=== PATIENT | female | born 1990 | race African-American/Black ===

== ENCOUNTER 2017-06-01 07:24 | Emergency (ER) | payer OTHER ==
--- NOTE | 2017-06-01 07:30 | PDOC ---
History of Present Illness - General Chief Complaint: Ear Problem Stated Complaint: RT EAR WAX Time Seen by Provider: 06/01/17 07:30 History Source: Patient Exam Limitations: No Limitations - History of Present Illness Initial Comments: 27 yo F no pertinent PMH presents with R cerumen impaction. She states she does not use Q-tips, and has not had symptoms before today. She did not try to remove it herself. She endorses difficulty with hearing on the R side due to cerumen. Past History - Past Medical History Allergies/Adverse Reactions: Allergies Allergy/AdvReac Type Severity Reaction Status Date / Time No Known Allergies Allergy Verified 06/01/17 08:09 Home Medications: Ambulatory Orders NK [No Known Home Medication] 06/01/17 Asthma: Yes - Suicide/Smoking/Psychosocial Hx Smoking History: Never smoked Hx Alcohol Use: Yes (RARE) Substance Use Type: None Review of Systems - Review of Systems Able to Perform ROS?: Yes Comments:: GENERAL/CONSTITUTIONAL: No fever or chills. No weakness. HEAD, EYES, EARS, NOSE AND THROAT: No change in vision. No ear pain or discharge. No sore throat. +R ear cerumen, decreased hearing. SKIN: No rash NEUROLOGIC: No headache, vertigo, loss of consciousness, or change in strength/ sensation. *Physical Exam - Physical Exam Comments: GENERAL: Awake, alert, and fully oriented, in no acute distress HEAD: No signs of trauma EYES: PERRLA, EOMI, sclera anicteric, conjunctiva clear ENT: Auricles normal inspection, hearing grossly normal, nares patent, oropharynx clear without exudates. Moist mucosa. R ear with cerumen impaction, TM not visualized. NECK: Normal ROM, supple, no lymphadenopathy, JVD, or masses SKIN: Warm, Dry, normal turgor, no rashes or lesions noted. Procedures - Additional Procedures Additional Procedures: other Progress: 06/01/17 10:02 R EAC filled and irrigated multiple times with warm water/peroxide solution to soften the wax. Approximately 1/3 of it was removed with simple irrigation. Subsequently, able to remove half of the impaction using an ENT wire loop, after which part of the TM was visible and patient was able to hear again. She was unable to tolerate any further removal due to discomfort with the loop, however, she reports she is much more comfortable s/p removal. I examined the L ear afterwards and noted that the TM was partially obstructed by cerumen. I was able to remove it more easily than the R side, and removed a significant portion. Again, she had discomfort to the EAC at a certain point and moved slightly, loop touched EAC and caused small abrasion. No TM injury. Hearing intact B/L. Medical Decision Making - Medical Decision Making 06/01/17 07:45 Discussed options for removal with patient- peroxide/water in ED and at home vs attempt at manual removal in ED. I counseled her that removing it with a scoop can be painful, she opted for removal as it is causing her discomfort and hearing loss. 06/01/17 10:05 See procedure note for details. Patient tolerated partial cerumen removal and reports improvement in her hearing. Stable for DC home. *DC/Admit/Observation/Transfer Diagnosis at time of Disposition: Cerumen impaction Qualifiers: Laterality: bilateral Qualified Code(s): H61.23 - Impacted cerumen, bilateral - Discharge Dispostion Disposition: HOME Condition at time of disposition: Stable Admit: No - Referrals - Patient Instructions Printed Discharge Instructions: DI for Cerumen Impaction - Post Discharge Activity
[2017-06-01 08:29] VITALS: BP 120/68; PULSE 74; TEMP 98.5; BMI 28.3
== END 2017-06-01 10:14 | disposition home or self-care (01) ==
LOC: FER 07:24
PROC: 09C4XZZ Extirpation of Matter from Left External Auditory Canal, External Approach (ICD-10-PCS; principal; 2017-06-01)
PROC: 09C3XZZ Extirpation of Matter from Right External Auditory Canal, External Approach (ICD-10-PCS; 2017-06-01)
DX: H61.23 Impacted cerumen, bilateral (principal)
CPT/HCPCS: 99282-25

== ENCOUNTER 2021-09-19 19:59 | Emergency (ER) | payer OTHER ==
[2021-09-19 20:21] VITALS: BP 121/77; PULSE 88; TEMP 98.4; BMI 26.4
== END 2021-09-19 21:19 | disposition home or self-care (01) ==
LOC: FER 19:59
DX: R07.89 Other chest pain (principal)
CPT/HCPCS: 36415; 82550; 82553; 84484; 93005; 99284-25